=== PATIENT | male | born 2000 | race Caucasian/White ===

== ENCOUNTER 2022-07-10 09:12 | Emergency (ER) | payer SELFPAY | END 2022-07-10 11:29 | disposition home or self-care (01) | LOC: MW.ED 09:12 | DX: S29.9XXA Unspecified injury of thorax, initial encounter (principal); J45.909 Unspecified asthma, uncomplicated; W50.0XXA Accidental hit or strike by another person, initial encounter; Y93.22 Activity, ice hockey | CPT/HCPCS: 71100-26-LT; 71100-LT; 99283 ==